=== PATIENT | male | born 1965 | race Caucasian/White ===

== ENCOUNTER 2016-10-06 09:13 | Emergency (ER) | payer SELFPAY ==
[~2016-10-06 09:13] MED LIST: PERCOCET 5/3251 TAB PO; PERCOCET 5MG/AP1 TA3 PO
[2016-10-06] MEDS ORDERED: NO HOME MEDICATION XX (09:23)
[2016-10-06] MEDS ORDERED: NORCO 5-325 TA1 EACH PO (10:30)
== END 2016-10-06 10:35 ==
LOC: EDMED 09:13
DX: S92.412A Displaced fracture of proximal phalanx of left great toe, initial encounter for closed fracture (principal); W20.8XXA Other cause of strike by thrown, projected or falling object, initial encounter; Y92.009 Unspecified place in unspecified non-institutional (private) residence as the place of occurrence of the external cause